=== PATIENT | female | born 1985 | race Caucasian/White ===

== ENCOUNTER 2016-12-08 06:49 | Emergency (ER) | payer OTHER ==
[~2016-12-08] VITALS: Ht 157.5 cm; Wt 66.0 kg
[~2016-12-08 06:49] MED LIST: AVIATAB PO; VITA100017 PO; VITA500S3 SL
[2016-12-08 06:53] VITALS: BP 113/68; PULSE 109; RESP 16; TEMP 98.6; O2SAT 97
[2016-12-08] MEDS ORDERED: ACETAMINOPHEN 500 MG CPLT PO ONE (07:15)
[2016-12-08] MEDS ORDERED: ANAF75CA PO (07:17)
--- NOTE | 2016-12-08 07:18 | PD ---
HPI Chief Complaint: Musculoskeletal Complaint Time Seen by Provider: 07:04 Travel History International Travel<30 days: No Contact w/Intl Traveler<30days: No Traveled to known affect area: No History of Present Illness HPI This is a 31-year-old female who presents to the emergency department with ankle pain that started this morning when she woke up, constant, moderate severity, associated with swelling in her ankle. She's been unable to weight- bear. She says that several days ago they went to [employer] [place] and they walked 10-12 miles. She has had no other recent injuries. PFSH Past Medical History Arthritis: No Asthma: No Autoimmune Disease: No Blood Disorders: No Anxiety: Yes Depression: Yes Heart Rhythm Problems: No Cancer: No Cardiovascular Problems: No High Cholesterol: No Chemotherapy: No Chest Pain: No Congestive Heart Failure: No COPD: No Cerebrovascular Accident: No Diabetes: No Diminished Hearing: No Endocrine: No Gastrointestinal Disorders: Yes (CELIAC DISEASE) GERD: No Glaucoma: No Genitourinary: No Headaches: No Hepatitis: No Hiatal Hernia: No Hypertension: No Immune Disorder: No Kidney Stones: No Medical other: Yes (CELIAC DISEASE, SCOLOSIS) Musculoskeletal: Yes Neurologic: No Psychiatric: Yes Reproductive: No Respiratory: No Migraines: No Myocardial Infarction: No Radiation Therapy: No Renal Failure: No Seizures: No Sickle Cell Disease: No Sleep Apnea: No Thyroid Disease: No Ulcer: No Tetanus Vaccination: > 5 Years Influenza Vaccination: No ?: Not Past Surgical History Abdominal Surgery: No AICD: No Appendectomy: No Arteriovenous Shunt: No Cardiac Surgery: No Cholecystectomy: No Ear Surgery: No Endocrine Surgery: No Eye Surgery: No Genitourinary Surgery: No Gynecologic Surgery: No Insulin Pump: No Joint Replacement: No Neurologic Surgery: No (BACK SURGERY FOR SCOLIOSIS) Oral Surgery: Yes (ALL 4 WISDOM TEETH) Pacemaker: No Thoracic Surgery: No Other Surgery: Yes Social History Alcohol Use: Yes (~1 X WEEK) Tobacco Use: No Substance Use: No Allergies-Medications (Allergen,Severity, Reaction): Coded Allergies: gluten (Unverified Allergy, Severe, 12/08/16) Reported Meds & Prescriptions Reported Meds & Active Scripts Active Reported Anafranil (Clomipramine HCl) 75 Mg Cap 150 Mg PO DAILY Review of Systems General / Constitutional: No: Fever, Chills Respiratory: No: Shortness of Breath Physical Exam Narrative GENERAL: Well-appearing, no acute distress, nontoxic SKIN: Warm and dry. HEAD: Atraumatic. Normocephalic. ENT: No nasal bleeding or discharge. Moist mucous membranes Vascular: 2+ right DP pulse with normal capillary refill. MUSCULOSKELETAL: Swelling involving the right lateral malleolus and tender to palpation along the proximal aspect of the fifth metatarsal on the right foot NEUROLOGICAL: Awake and alert. No obvious cranial nerve deficits. Motor grossly within normal limits. Normal speech. PSYCHIATRIC: Appropriate mood and affect; insight and judgment normal. Data Data Last Documented VS Vital Signs Date Time Temp Pulse Resp B/P (MAP) Pulse Ox O2 Delivery O2 Flow Rate FiO2 12/08/16 06:53 98.6 109 16 113/68 (83) 97 Orders Orders Ankle, Complete ([id number]) (12/08/16 ) Foot, Complete (Oej0ped) (12/08/16 ) Acetaminophen (Tylenol) (12/08/16 07:15) MDM Medical Decision Making Medical Screen Exam Complete: Yes Emergency Medical Condition: Yes Interpretation(s) X-ray ankle and foot are reassuring Differential Diagnosis Contusion, sprain, stress fracture Narrative Course This is a 31-year-old female who presents to the emergency department with foot and ankle pain after walking 10-12 miles. She has an effusion involving the right ankle. She has a normal neurovascular exam. X-rays were reassuring with no evidence of fracture. Patient was advised to rest, ice, Kalyan wrap and elevate the foot and to follow-up with a svp marketing [employer] at [employer] [facility] if she's not improved in 7- 10 days. Diagnosis Primary Impression: Ankle sprain Qualified Codes: S93.401A - Sprain of unspecified ligament of right ankle, initial encounter Referrals: Zackary Pham DPM Patient Instructions: General Instructions Additional Instructions: If you develop severe pain in the foot or ankle, numbness, weakness, or coolness of your foot return to the emergency department immediately. - Use crutches as needed and rest your ankle until your pain improves. - Apply ice to your ankle for 20 minutes every 3 hours for the first 2 days. - Use an kalyan wrap to minimize swelling. - Keep your ankle elevated when you are resting. - Use ibuprofen as needed for pain. - Gradually start exercises with your ankle, moving it upward, downward and in small circles. Perform 20 clockwise and 20 counterclockwise circles twice daily. Med/Other Pt SpecificInfo: No Change to Meds Disposition: 01 DISCHARGE HOME Condition: Stable Shasha Almanza MD Dec 08, 2016 07:17
--- NOTE | 2016-12-08 07:58 | RADRPT ---
EXAM DATE/TIME: 12/08/2016 07:28 [facility] COMPARISON: No previous studies available for comparison. INDICATIONS : Twisted right ankle. Pain and limited motion. MEDICAL HISTORY : None. SURGICAL HISTORY : None. ENCOUNTER: Initial ACUITY: 2 days PAIN SCORE: 7/10 LOCATION: Right lateral FINDINGS: Three view exam was performed of the right ankle. The bony structures are in normal alignment. No e vidence of fracture, dislocation, or soft tissue swelling. The ankle mortise is intact. No radiopaq ue foreign bodies are seen. Bony mineralization is normal. CONCLUSION: Normal examination for a patient of this age. Jarocho Fleming MD on December 08, 2016 at 7:56 Board Certified Radiologist. This report was verified electronically.
--- NOTE | 2016-12-08 07:59 | RADRPT ---
EXAM DATE/TIME: 12/08/2016 07:28 [facility] COMPARISON: No previous studies available for comparison. INDICATIONS : Right foot injury. Pain and swelling. MEDICAL HISTORY : None. SURGICAL HISTORY : None. ENCOUNTER: Initial ACUITY: 2 days PAIN SCORE: 7/10 LOCATION: Right lateral FINDINGS: Three view examination of the right foot demonstrates no soft tissue swelling, dislocation, or fractu re. The tarsal bones appear intact. The interphalangeal and metatarsophalangeal joints are intact. The calcaneus is intact. Bony mineralization is normal. CONCLUSION: Normal examination for a patient of this age. Jarocho Fleming MD on December 08, 2016 at 7:57 Board Certified Radiologist. This report was verified electronically.
== END 2016-12-08 08:26 | disposition home or self-care (01) ==
LOC: PHED 06:49
DX: S93.401A Sprain of unspecified ligament of right ankle, initial encounter (principal); X50.3XXA Overexertion from repetitive movements, initial encounter; Y93.01 Activity, walking, marching and hiking; Y92.831 Amusement park as the place of occurrence of the external cause
CPT/HCPCS: 73610; 73630; 99283; E0113

== ENCOUNTER 2017-09-12 18:34 | Inpatient (IN) ==
[2017-09-12] MEDS ORDERED: Sod Chloride 0.9% Inj 1,000 ML IV.CONT PRN ×2 (19:29→19:37)
[2017-09-12] MEDS ORDERED: Sodium Chlor 0.9% Inj 500 ML IV.SIG PRN (19:29)
[2017-09-12] MEDS ORDERED: fentaNYL Citrate Inj 100 MCG/2 ML Ampul IV.PUSH PRN ×2 (19:37→21:06)
[2017-09-12] MEDS ORDERED: Naloxone Inj 0.4 MG/ML Vial IV.PUSH PRN (19:37)
[2017-09-12] MEDS ORDERED: Dextrose 50% in Water 50 ML Vial IV.PUSH PRN (19:39)
[2017-09-12] MEDS ORDERED: Citric Acid/Sodium Citrate Liq 30 ML UDC PO SCH (19:45)
--- NOTE | 2017-09-12 19:48 | P.OBGPN ---
H&P dicated. Brief pt summary: Vital signs not yet collected. 32 yo G1 a 39w0d by L/5 (BERTHA 09/19/17) 1. IUP: Cat 1 tracing, continue - male fetus, maybe for circ. - EFW (09/06) = 3216g (64%) AC (77%), Cephalic. - GBS neg 2. IOL: secondary to #3, BS unfavorable, PV miso 25mcg q4H. Allow to eat if Cat 1 after miso. 3. GDM A2: Continue home metformin 500mg qHS, BS AM fasting and 1hr PP, in latent labor q2hr, then q1hr active, goal 70-110. 4. Bilateral renal pyelectasis: Found at [facility], resolved on most recent ultrasounds. - Normal anatomy ultrasound and neg quad screen. 5. OCD / GENE / MDD: continue climipermine, will monitory for sn/sx of worsening . 6. Scoliosis: s/p hearn rods when younger, provided reassurance that likely not to interfere with epidural
[2017-09-12] MEDS ORDERED: Oxytocin 30 Units/500ml Premix 30 UNITS/500 ML BAG IV.SIG ONE (21:00)
[2017-09-12 21:18] LABS: Baso % (Auto) 0.3 % (0.0-2.0); Eos % (Auto) 0.4 % (0.0-4.0); Hematocrit 34.3 % (35.0-46.0); Lymph # (Auto) 1.5 th/mm3 (1.0-4.8); Mean Corpuscular HGB Conc 32.2 % (32.0-36.0); Mean Corpuscular Volume 77.5 fL (80.0-100.0); Mean Platelet Volume 10.5 fL (7.0-11.0); Mono # (Auto) 0.6 th/mm3 (0.0-0.9); Mono % (Auto) 6.7 % (0.0-8.0); Neut # (Auto) 6.2 th/mm3 (1.8-7.7); Neut % (Auto) 74.6 % (16.0-70.0); Platelet Count 148 th/mm3 (150-450); Red Blood Count 4.42 mil/mm3 (4.00-5.30); White Blood Count 8.4 th/mm3 (4.0-11.0)
[2017-09-12 21:22] LABS: Bacteria,Urine Few /hpf; Bilirubin,Urine Negative (Negative); Clarity,Urine Clear (Clear); Color,Urine Straw (Yellw/Straw); Glucose,Urine (UA) Negative (Negative); Leukocyte Esterase,Urine Trace (Negative); Mucus,Urine Few /lpf (Occasional); Nitrite,Urine Negative (Negative); Specific Gravity,Urine 1.003 (1.002-1.035); Squamous Epithelial Cell,Urine 1 /hpf (0-5)
[2017-09-12 21:23] LABS: Amphetamine Urine With Conf Neg (Neg); Benzodiazepine Urine With Conf Neg (Neg)
[2017-09-13] MEDS: Insulin NovoLIN Regular Correctional Sugar Inj SQ SCH ×2 (02:38→06:28)
[2017-09-13] MEDS: fentaNYL Citrate Inj 100 MCG/2 ML Ampul IV.PUSH PRN ×2 (03:53→07:21)
--- NOTE | 2017-09-13 07:31 | P.OBGPN ---
S: Doing well, having regular painful contractions, no vaginal bleeding or loss of fluid. Desires epidural. O: Cervix: 3-4/70/-2 heart tones: 120s- 130s moderate variability accelerations present no decelerations Tocometry: Contractions irregularly every 2-4 minutes A/P: 32 yo G1 a 39w1d by L/5 (BERTHA 09/19/17) 1. IUP: Cat 1 tracing - male fetus, maybe for circ. - EFW (09/06) = 3216g (64%) AC (77%), Cephalic. - GBS neg 2. IOL: secondary to #3, BS favorable s/p PV miso x2. Will AROM after epidural placed. Anticipate vaginal delivery 3. GDM A2: Continue home metformin 500mg qHS, BS have been normal, check q2hr now and then q1hr in active phase, if normal may consider d/c finger sticks. MDSS for coverage. 4. Bilateral renal pyelectasis: Found at AU, resolved on most recent ultrasounds. - Normal anatomy ultrasound and neg quad screen. 5. OCD / GENE / MDD: continue home climipermine, will monitory for sn/sx of worsening . 6. Scoliosis: s/p hearn rods when younger, anesthesia to assess for placement now
[2017-09-13] MEDS ORDERED: Oxytocin 30 Units/500ml Premix 30 UNITS/500 ML BAG IV.SIG PRN (07:33)
[2017-09-13] MEDS ORDERED: fentaNYL 2MCG-Bupiv 0.125% Epi 150 ML EPIDURAL ONE (08:09)
[2017-09-13] MEDS ORDERED: CLOMIPRAMINE 50 MG PO SCH (09:00)
[2017-09-13] MEDS ORDERED: fentaNYL 2MCG-Bupiv 0.125% Epi 150 ML EPIDURAL PRN (09:23)
[2017-09-13] MEDS ORDERED: fentaNYL Citrate Inj 100 MCG/2 ML Ampul EPIDURAL ONE (09:35)
--- NOTE | 2017-09-13 10:55 | P.OBLABOR ---
Subjective Interval history: pt comfortable with epidural Objective Vital Signs: Vital Signs - 8 hr 09/13/17 03:50 09/13/17 04:58 09/13/17 07:15 Temperature 97.9 F Pulse Rate 66 Respiratory Rate 18 18 7 L Blood Pressure 130/77 09/13/17 07:24 09/13/17 08:30 09/13/17 08:45 Temperature 99.0 F Pulse Rate 71 73 72 Respiratory Rate 18 Blood Pressure 135/88 140/85 141/90 H 09/13/17 08:50 09/13/17 08:51 09/13/17 08:53 Temperature Pulse Rate 61 68 Respiratory Rate 19 Blood Pressure 129/71 09/13/17 08:55 09/13/17 09:05 09/13/17 09:10 Temperature Pulse Rate 62 66 59 L Respiratory Rate Blood Pressure 133/71 131/75 120/67 09/13/17 09:13 09/13/17 09:25 09/13/17 09:30 Temperature Pulse Rate 67 Respiratory Rate 18 18 Blood Pressure 128/80 09/13/17 09:36 09/13/17 09:39 09/13/17 09:40 Temperature Pulse Rate 76 64 Respiratory Rate 19 Blood Pressure 127/79 121/74 09/13/17 09:45 09/13/17 09:50 09/13/17 09:55 Temperature Pulse Rate 63 75 75 Respiratory Rate Blood Pressure 123/58 L 127/77 09/13/17 10:00 09/13/17 10:10 09/13/17 10:15 Temperature Pulse Rate 82 73 65 Respiratory Rate 17 Blood Pressure 118/80 118/70 09/13/17 10:30 Temperature Pulse Rate 69 Respiratory Rate 18 Blood Pressure 123/74 Objective: Pelvic Exam: Cervix: [-] Dilatation: [-] Effacement: [-] Station: [-] Presentation: [-] Membranes: [intact or ruptured] Uterine Contractions: [-] FHT's: Category: [-] Baseline: [-] Reactive: [-] Variability: [-] Decels: [-] Artificial Rupture of Membrane: Yes Artificial ROM Date: 09/13/17 Artificial ROM Time: 10:25 Assessment and Plan - Diagnosis (1) Code(s): Z34.90 - Encounter for supervision of normal , unspecified, unspecified trimester Status: Acute - Plan arom attempted, minimal fluid returned (1) Qualifiers: Weeks of gestation: 39 weeks Qualified Code(s): Z3A.39 - 39 weeks gestation of
--- NOTE | 2017-09-13 13:24 | MH ---
cc: Chon Diaz MD DATE OF ADMISSION: 09/12/2017 CHIEF COMPLAINT: Scheduled induction of labor. HISTORY OF PRESENT ILLNESS: The patient is a 32-year-old G1, who will be at 39 weeks and 0 days by her sure LMP, consistent with a 5-week 6-day ultrasound with estimated due date of 09/19/2017, here for induction of labor secondary to gestational diabetes A2. Any addendum or additions to her HPI, vitals or assessment and plan will be added as an addendum on a separate note. The has been complicated by gestational diabetes A2, depression, OCD, anxiety, celiac disease and early finding of pyelectasis which resolved. PAST MEDICAL HISTORY: 1. Celiac disease. 2. Anxiety. 3. Depression. 4. Obsessive compulsive disorder. 5. History of scoliosis, status post rods MEDICATIONS: 1. Clomipramine 50 mg daily. 2. vitamins. 3. Metformin 500 mg at bedtime. 4. MiraLax. ALLERGIES: NKDA. PAST SURGICAL HISTORY: 1. Arm and shoulder surgeries in 2010. 2. Scoliosis repair, states she has rods in her back in 2000. OBSTETRIC HISTORY: G1. SENIOR INFORMATION SYSTEMS ARCHITECT HISTORY: LMP 12/13/2016. History of STDs: Denies. History of abnormal Pap: Yes, but most recent 02/13/2017 was normal. SOCIAL HISTORY: No tobacco, alcohol or drug use. FAMILY HISTORY No pertinent positive family history. PHYSICAL EXAMINATION: VITAL SIGNS: Most recent on 09/06/2017, blood pressure 104/70, weight 182 pounds. GENERAL: Alert and oriented x3, resting comfortably in bed, in no acute distress. LUNGS: Clear to auscultation bilaterally. CARDIAC: Regular rate and rhythm. No murmurs, rubs or gallops. ABDOMEN: Soft, gravid, nontender. : Deferred. EXTREMITIES: No clubbing, cyanosis or edema. LABORATORY DATA: Blood type B positive, antibody negative. Baseline hemoglobin on 12/31/2017 12.7. Varicella immune, rubella immune, VDRL nonreactive. Urine culture negative. Hepatitis B surface antigen negative, HIV negative. TSH 2.02. Sickle cell screen negative. Hepatitis B antibody negative. Drug screen negative. Gonorrhea and chlamydia not performed. Quad screen negative on 04/15/2017. 1-hour Glucola of 160 , 3 hours, 77, 186, 197, 133. GBS negative. ASSESSMENT AND PLAN: This patient is a 32-year-old, G1, at 39 weeks and 0 days by LMP, consistent with 5-week ultrasound with estimated due date of 09/19/2017, here for induction of labor secondary to gestational diabetes A2. 1. Intrauterine . Will be placed on continuous monitoring at time of presentation. - cephalic by ultrasound on 09/06/2017. GBS negative. - estimated weight on 09/06/2017, 3216 grams, 64th percentile, abdominal circumference 77th percentile. Placenta posterior. DARYL 16 cm. Male fetus. Desires circumcision. 2. Induction of labor secondary to #3. Leger score will be assessed and calculated at the time of presentation, likely for cervical ripening. I have discussed the risks and benefits of induction of labor and aware that it will likely be prolonged given her primigravida status. Will desire epidural. She is aware that it will be up to the anesthesiologist to feel that this can be achieved secondary to her history of Oneil rods, but provide her reassurance that it is likely to be successful. 3. Gestational diabetes, A2. Has been well controlled on metformin 500 mg at bedtime. Blood sugars will be checked fasting and every 1 hour postprandial on early stages of labor and every 2 hours in late labor, every 1 hour in active phase. Goal is 70-110. May need sliding scale or drip for coverage. We will assess as labor progresses. 4. OCD/anxiety/depression. Continue her clomipramine followed by psychiatry as an outpatient. We will continue to monitor closely for any worsening or development of depression. 5. History of pyelectasis found during her anatomy ultrasound have resolved on repetitive ultrasounds during testing. Negative quad screen and normal anatomy. 7. 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 MD GLEN EddyT/KIERSTEN , 01:35 PM , 02:24 PM MÓNICA
[2017-09-13] MEDS ORDERED: Measles/Mumps/Rubella Vaccine Inj 0.5 ML Vial SQ ONE (16:00)
[2017-09-13] MEDS ORDERED: Varicella Vaccine Live 1350 UNITS/0.5 ML Vial SQ ONE (16:00)
[2017-09-13] MEDS ORDERED: Rho Immune Globulin Inj 1,500 UNIT/1.3 ML Vial IM ONE (16:00)
[2017-09-13] MEDS ORDERED: Diphtheria/Tetanus/Pertussis Vaccine Inj 0.5 ML Syringe IM ONE (16:00)
[2017-09-13] MEDS ORDERED: Lidocaine PF 1% Inj 30 ML Vial ONE (19:20)
[2017-09-13] MEDS ORDERED: Methylergonovine Inj 0.2 MG/ML Ampul ONE (21:41)
[2017-09-13] MEDS ORDERED: Methylergonovine Inj 0.2 MG/ML Ampul IM ONE (22:21)
[2017-09-13] MEDS ORDERED: Benzocaine 20% Top Spray 60 ML Can TOPICAL PRN (22:21)
[2017-09-13] MEDS ORDERED: Acetaminophen 325 MG Tablet PO PRN (22:21)
[2017-09-13] MEDS ORDERED: Zolpidem Tartrate 5 MG Tablet PO PRN (22:21)
[2017-09-13] MEDS ORDERED: Bisacodyl 10 MG Supp RECTAL PRN (22:21)
[2017-09-13] MEDS ORDERED: Naloxone Inj 0.4 MG/ML Vial IV.PUSH PRN (22:21)
[2017-09-13] MEDS ORDERED: Witch Hazel 50%/Glyderin 12.5% 40 Pad Jar RECTAL PRN (22:21)
[2017-09-13] MEDS ORDERED: Oxytocin 30 Units/500ml Premix 30 UNITS/500 ML BAG IV.CONT SCH (22:30)
--- NOTE | 2017-09-13 22:31 | P.OP ---
Date of procedure: 09/13/17 Surgeon: Chon Diaz MD Operation and Findings: Preoperative diagnosis: 1. Intrauterine at 39 weeks and 1 day 2. Gestational diabetes A2 Postop diagnosis 1. Same as above status post delivery Procedure 1. Vacuum-assisted vaginal delivery Surgeon Dr. Chon Diaz Algorithm Design Engineer: Labor and delivery nursing staff Findings: 1. Viable male at 0929 Apgars 8 and 9. weight 3290 g 2. Intact placenta 3 vessel cord at 0936 3. Uterine atony resolved with bimanual massage, 1 dose of IM methargen and bolus Pitocin 4. First-degree laceration repaired with running 3-0 Vicryl. Bilateral labia minora lacerations right greater than left 5. Umbilical arterial and venous cord gases pending Anesthesia: Epidural Specimen: Placenta to disposal Estimated blood loss: 500 cc Fluid replacement: Lactated Ringer's and Pitocin Urine output: Clear urine, no amount recorded DVT prophylaxis: SCDs Antibiotics: None required Medications: 0.2 mg IM methargen 1 after delivery Counts: In corrected in the procedure, however nothing was placed vaginally and a vaginal sweep was done and no surgical sponges were found. Time out done: yes Disposition: Stable to Indications: 32-year-old G1 now P1 001 who presented for induction of labor secondary to gestational diabetes A2, she was given misoprostol 2, artificially ruptured, received her epidural, progressed with Pitocin for augmentation to complete. Description of procedure: Consent: The risks (which are relatively low and generally are viewed as acceptable for the above indications by ACOG), benefits, alternatives, expected outcomes, and risks of declining treatment were explained and discussed with the patient risks including but not limited to scalp laceration, retinal hemorrhages, brachial plexus injury, cephalohematoma formation, and subgaleal or intracranial hemorrhage, which typically are transient but can results in permanent neurological sequela. Maternal risk included but not limited to perineal laceration and failure of vacuum and potentially needed a . Description of procedure: The fetus was at +2 station and in SHYLA position, the bladder was recently drained, and her anesthesia was adequate, the vacuum was placed 2 cm anterior to the posterior fontanelle over the sagital suture. Suction was applied to green and with coordination of maternal pushing efforts downward traction was applied with the vacuum until the head was , suction and the vacuum was removed. The head upon was allowed to restitute naturally after delivery with a supported perineum, a loose nuchal cord was reduced, with gentle downward guidance anterior shoulder was delivered followed by gentle upper guidance for the posterior shoulder, the torso and lower extremities delivered with ease with continued perineal support. The had spontaneous cry and was placed on mom's abdomen for skin to skin contact, we allow delayed cord clamping. After the cord was clamped and cut, cord blood was obtained. Pitocin was bolused and with fundal massage the placenta was delivered, there was some brisk bleeding and uterine atony, which resolved with bimanual massage, bolus Pitocin and 1 dose of IM methargen. The perineum vagina and cervix were inspected and the first degree was repaired with 3-0 Vicryl and the bilateral labial's were repaired with 3-0 Vicryl. The patient tolerated the procedure well and was left in the birthing suite with her .
--- NOTE | 2017-09-13 22:37 | P.DS ---
Date of admission: 09/12/17 18:34 Primary care physician: NOT REQUIRED Brief History from admission: 32-year-old 001 who presented at 39 weeks and 0 days for induction of labor secondary to her gestational diabetes, she received misoprostol, was augmented further and delivered via vacuum-assisted delivery, please see operative report for further details. She was meeting all of her milestones and day #2 and was discharged home. DS: Medications - Discharge Medications Prescriptions: ibuprofen [Motrin IB] 600 mg PO TID-QID PRN 30 Days tab PRN Reason: Pain DS: Summary Hospital Course: See brief history - Time Spent with Patient Total time spent providing and/or coordinating discharge services: Exam Vital signs: Vital Signs 09/13/17 00:11 09/13/17 03:50 09/13/17 04:58 Temperature 98.3 F 97.9 F Pulse Rate 65 66 Respiratory Rate 17 18 18 Blood Pressure 117/72 130/77 09/13/17 07:15 09/13/17 07:24 09/13/17 08:30 Temperature 99.0 F Pulse Rate 71 73 Respiratory Rate 7 L Blood Pressure 135/88 140/85 09/13/17 08:45 09/13/17 08:50 09/13/17 08:51 Temperature Pulse Rate 72 61 68 Respiratory Rate 18 Blood Pressure 141/90 H 129/71 09/13/17 08:53 09/13/17 08:55 09/13/17 09:05 Temperature Pulse Rate 62 66 Respiratory Rate 19 Blood Pressure 133/71 131/75 09/13/17 09:10 09/13/17 09:13 09/13/17 09:25 Temperature Pulse Rate 59 L 67 Respiratory Rate 18 Blood Pressure 120/67 128/80 09/13/17 09:30 09/13/17 09:36 09/13/17 09:39 Temperature Pulse Rate 76 Respiratory Rate 18 19 Blood Pressure 127/79 09/13/17 09:40 09/13/17 09:45 09/13/17 09:50 Temperature Pulse Rate 64 63 75 Respiratory Rate Blood Pressure 121/74 123/58 L 127/77 09/13/17 09:55 09/13/17 10:00 09/13/17 10:10 Temperature Pulse Rate 75 82 73 Respiratory Rate 17 Blood Pressure 118/80 09/13/17 10:15 09/13/17 10:30 09/13/17 10:40 Temperature Pulse Rate 65 69 69 Respiratory Rate 18 Blood Pressure 118/70 123/74 09/13/17 10:45 09/13/17 11:05 09/13/17 11:07 Temperature 97.9 F Pulse Rate 67 62 Respiratory Rate 17 18 Blood Pressure 130/85 113/69 09/13/17 11:10 09/13/17 11:15 09/13/17 11:40 Temperature Pulse Rate 65 64 64 Respiratory Rate Blood Pressure 115/69 111/67 09/13/17 11:55 09/13/17 12:25 09/13/17 12:40 Temperature Pulse Rate 67 66 65 Respiratory Rate Blood Pressure 114/78 132/85 125/81 09/13/17 13:35 09/13/17 13:40 09/13/17 13:45 Temperature 97.6 F Pulse Rate 63 73 84 Respiratory Rate 18 Blood Pressure 120/71 130/87 123/73 09/13/17 13:58 09/13/17 14:00 09/13/17 14:25 Temperature Pulse Rate 65 67 Respiratory Rate 17 Blood Pressure 119/86 09/13/17 14:30 09/13/17 14:40 09/13/17 14:46 Temperature Pulse Rate 74 78 69 Respiratory Rate 17 Blood Pressure 154/88 H 131/84 09/13/17 15:00 09/13/17 15:10 09/13/17 15:15 Temperature Pulse Rate 67 71 81 Respiratory Rate 18 Blood Pressure 131/83 09/13/17 15:25 09/13/17 16:00 09/13/17 16:15 Temperature 97.8 F Pulse Rate 79 71 65 Respiratory Rate 17 Blood Pressure 127/68 122/68 09/13/17 16:30 09/13/17 16:45 09/13/17 17:30 Temperature Pulse Rate 69 68 84 Respiratory Rate 8 L Blood Pressure 108/64 123/81 120/76 09/13/17 17:45 09/13/17 18:00 09/13/17 18:15 Temperature Pulse Rate 62 72 77 Respiratory Rate 16 Blood Pressure 126/79 135/83 121/70 09/13/17 18:45 09/13/17 19:00 09/13/17 19:14 Temperature 98.1 F Pulse Rate 82 80 Respiratory Rate Blood Pressure 123/70 124/67 09/13/17 19:15 09/13/17 19:30 09/13/17 19:56 Temperature Pulse Rate 71 Respiratory Rate 16 16 16 Blood Pressure 115/70 09/13/17 21:48 Temperature Pulse Rate 75 Respiratory Rate Blood Pressure 119/44 L Intake & Output 09/13/17 09/13/17 09/14/17 06:59 18:59 06:59 Intake Total 0 / 0 1000 / 1000 Balance 0 / 0 1000 / 1000 Weight 82.554 kg Intake: IV 0 / 0 1000 / 1000 LR 1000 mL Inj 1,000 ML @ 125 0 / 0 1000 / 1000 mls/hr IV.CONT .Q8H [facility] Rx#: [id number] Results Procedures completed during hospitalization: Vacuum-assisted vaginal delivery Labs on day of discharge: Labs from last 24 hours 09/13/17 09/13/17 09/13/17 14:36 11:20 08:17 POC Glucose 65 L 82 85 09/13/17 06:13 POC Glucose 72 Discharge Plan - Discharge Disposition Patient Disposition: 01 Discharge Home - Discharge Condition Condition: Good - Discharge Order Discharge Orders: Discharge Order (Routine); Ordered 09/15/17 Ordered By: Chon Diaz - Discharge Details Anticipated Discharge Date: 09/15/17 - Physicians Team Primary Care Provider: NOT REQUIRED, Attending Provider: Chon Diaz - Rxs /Orders / Referrals /Forms Prescriptions: New ibuprofen [Motrin IB] 200 mg Tablet 600 mg PO TID-QID PRN (Reason: Pain) 30 Days RF: 1 Continue clomipramine 50 mg Capsule 50 mg PO DAILY vit-iron fum-folic ac [ Vitamin] 27 mg iron- 0.8 mg Tablet 1 tab PO DAILY Discontinued metformin 500 mg Tablet 1 tab DAILY Referrals: Chon Diaz MD [Physician] - See Instructions NOT REQUIRED, [Primary Care Provider] - See Instructions - Discharge Instructions Additional Instructions: Call to make visit for 2 weeks. - Post Discharge Care Plan Care Plan Goals: Your Health Problems: Goals to Promote Your Health: * To prevent worsening of your condition * To maintain your health at the optimal level Directions to Meet Your Goals: * Take your medications as prescribed * Follow your dietary instruction * Follow activity as directed * Keep your appointments as scheduled * Take your immunizations and boosters as scheduled * If your symptoms worsen call your PCP * If no PCP go to Urgent Care or Emergency Room Smoking is dangerous to your health. Avoid second hand smoke. You may reach the 24-hour crisis hotline for domestic abuse at .
[2017-09-13] MEDS: Ibuprofen 400 MG Tablet PO PRN (23:06)
[2017-09-13 23:39] LABS: Cord Arterial Blood HCO3 20.5
[2017-09-14] MEDS: Ibuprofen 400 MG Tablet PO PRN ×2 (06:40→17:11)
--- NOTE | 2017-09-14 07:37 | P.PNOB ---
Subjective Post day: 1 Interval history: Doing well, pain controlled, voiding difficulty, vaginal bleeding equal to menses, no large clots, ambulating without difficulty. Objective Vital Signs/I&O: Vital Signs 09/13/17 08:30 09/13/17 08:45 09/13/17 08:50 Temperature Pulse Rate 73 72 61 Respiratory Rate 18 Blood Pressure 140/85 141/90 H 09/13/17 08:51 09/13/17 08:53 09/13/17 08:55 Temperature Pulse Rate 68 62 Respiratory Rate 19 Blood Pressure 129/71 133/71 09/13/17 09:05 09/13/17 09:10 09/13/17 09:13 Temperature Pulse Rate 66 59 L Respiratory Rate 18 Blood Pressure 131/75 120/67 09/13/17 09:25 09/13/17 09:30 09/13/17 09:36 Temperature Pulse Rate 67 76 Respiratory Rate 18 Blood Pressure 128/80 127/79 09/13/17 09:39 09/13/17 09:40 09/13/17 09:45 Temperature Pulse Rate 64 63 Respiratory Rate 19 Blood Pressure 121/74 123/58 L 09/13/17 09:50 09/13/17 09:55 09/13/17 10:00 Temperature Pulse Rate 75 75 82 Respiratory Rate 17 Blood Pressure 127/77 118/80 09/13/17 10:10 09/13/17 10:15 09/13/17 10:30 Temperature Pulse Rate 73 65 69 Respiratory Rate 18 Blood Pressure 118/70 123/74 09/13/17 10:40 09/13/17 10:45 09/13/17 11:05 Temperature Pulse Rate 69 67 62 Respiratory Rate 17 Blood Pressure 130/85 113/69 09/13/17 11:07 09/13/17 11:10 09/13/17 11:15 Temperature 97.9 F Pulse Rate 65 64 Respiratory Rate 18 Blood Pressure 115/69 09/13/17 11:40 09/13/17 11:55 09/13/17 12:25 Temperature Pulse Rate 64 67 66 Respiratory Rate Blood Pressure 111/67 114/78 132/85 09/13/17 12:40 09/13/17 13:35 09/13/17 13:40 Temperature Pulse Rate 65 63 73 Respiratory Rate Blood Pressure 125/81 120/71 130/87 09/13/17 13:45 09/13/17 13:58 09/13/17 14:00 Temperature 97.6 F Pulse Rate 84 65 Respiratory Rate 18 17 Blood Pressure 123/73 119/86 09/13/17 14:25 09/13/17 14:30 09/13/17 14:40 Temperature Pulse Rate 67 74 78 Respiratory Rate 17 Blood Pressure 154/88 H 09/13/17 14:46 09/13/17 15:00 09/13/17 15:10 Temperature Pulse Rate 69 67 71 Respiratory Rate 18 Blood Pressure 131/84 131/83 09/13/17 15:15 09/13/17 15:25 09/13/17 16:00 Temperature 97.8 F Pulse Rate 81 79 71 Respiratory Rate 17 Blood Pressure 127/68 09/13/17 16:15 09/13/17 16:30 09/13/17 16:45 Temperature Pulse Rate 65 69 68 Respiratory Rate 8 L Blood Pressure 122/68 108/64 123/81 09/13/17 17:30 09/13/17 17:45 09/13/17 18:00 Temperature Pulse Rate 84 62 72 Respiratory Rate Blood Pressure 120/76 126/79 135/83 09/13/17 18:15 09/13/17 18:45 09/13/17 19:00 Temperature Pulse Rate 77 82 80 Respiratory Rate 16 Blood Pressure 121/70 123/70 124/67 09/13/17 19:14 09/13/17 19:15 09/13/17 19:30 Temperature 98.1 F Pulse Rate 71 Respiratory Rate 16 16 Blood Pressure 115/70 09/13/17 19:56 09/13/17 21:48 09/13/17 21:50 Temperature 98.0 F Pulse Rate 75 Respiratory Rate 16 18 Blood Pressure 119/44 L 09/13/17 22:05 09/13/17 22:20 09/13/17 22:30 Temperature Pulse Rate 59 L Respiratory Rate 18 18 18 Blood Pressure 139/73 09/13/17 22:47 09/13/17 22:50 09/13/17 23:35 Temperature 99.2 F Pulse Rate 72 51 L Respiratory Rate 16 20 Blood Pressure 137/85 139/78 Intake & Output 09/13/17 09/14/17 09/14/17 18:59 06:59 18:59 Intake Total 1000 / 1000 Balance 1000 / 1000 Intake: IV 1000 / 1000 LR 1000 mL Inj 1,000 ML @ 125 1000 / 1000 mls/hr IV.CONT .Q8H BEENA Rx#: [id number] Result Diagrams: 09/12/17 20:21 Objective Remarks: GENERAL: Well-nourished, well-developed patient. CARDIOVASCULAR: Regular rate and rhythm without murmurs, gallops, or rubs. RESPIRATORY: Breath sounds equal bilaterally. No accessory muscle use. ABDOMEN/GI: Abdomen soft, non-tender. Fundus: Firm, non-tender at umbilicus. GENITOURINARY: Light to moderate bleeding. EXTREMITIES: No cyanosis or edema, non-tender, without signs of DVT. Medications and IVs: Active Medications Acetaminophen (Tylenol) 650 mg PO Q4H PRN PRN Reason: PAIN SCALE 1 TO 2 Al Hydroxide/Mg Hydroxide (Milk Of Magnesia Liq) 30 ml PO Q12H PRN PRN Reason: Mild Constipation Benzocaine (Americaine 20% Top [place]) 1 spray TOPICAL Q4H PRN PRN Reason: For Perineum Discomfort Last Admin: 09/14/17 06:41 Dose: 1 spray Bisacodyl (Dulcolax Supp) 10 mg RECTAL DAILY PRN PRN Reason: SEVERE CONSITIPATION Ferrous Sulfate (Ferosul) 325 mg PO DAILY [facility]EE[facility] Lactulose (Lactulose Liq) 30 ml PO DAILY PRN PRN Reason: SEVERE CONSITIPATION Naloxone HCl (Narcan Inj) 0.1 mg IV.PUSH Q2M PRN PRN Reason: for opiate reversal Ondansetron HCl (Zofran Odt) 4 mg PO Q6H PRN PRN Reason: NAUSEA OR VOMITING Oxycodone/Acetaminophen (Percocet 5/325 Mg) 1 tab PO Q4H PRN PRN Reason: PAIN SCALE 3 TO 5 Oxycodone/Acetaminophen (Percocet 5/325 Mg) 2 tab PO Q4H PRN PRN Reason: PAIN SCALE 6 TO 10 Last Admin: 09/13/17 23:07 Dose: 2 tab Senna/Docusate Sodium ([place]-Colace) 1 tab PO BID [facility] Sennosides (Senokot) 17.2 mg PO Q12H PRN PRN Reason: Moderate Constipation Sodium Chloride (Ns Flush) 2 ml IV.FLUSH BID [facility] Sodium Chloride (Ns Flush) 2 ml IV.FLUSH PRN PRN PRN Reason: FLUSH AFTER USING IV ACCESS Witch Guera/Glycerin (Tucks Pads) 1 applicatio RECTAL QID PRN PRN Reason: HEMORRHOIDS Last Admin: 09/14/17 06:41 Dose: 1 applicatio Zolpidem Tartrate (Ambien) 5 mg PO HS PRN PRN Reason: SLEEP Assessment and Plan - Plan 32-year-old status post vacuum-assisted vaginal delivery at 39 weeks and 1 day. 1. day #1: Doing well, continue routine care, some difficulty breast-feeding, to see today. Anticipate discharge home tomorrow. Discussed discharge precautions, expectations and follow-up. -Male , will do circumcision tomorrow as having some respiratory issues this morning. 2. Depression: Discussed precautions, continue her home medication 3. GDM A2: DC metformin, will need 2 hour glucose test between 4 and 12 weeks . 4. Thrombocytopenia: Likely gestational, normal platelet count with her new OB labs.
[2017-09-14 08:18] VITALS: RESP 18
[2017-09-14] MEDS: Ferrous Sulfate 325 MG Tablet PO SCH (10:22)
[2017-09-14] MEDS: Senna/Docusate Sodium 8.6/50 MG Tablet PO SCH ×2 (10:22→21:05)
[2017-09-14 20:57] VITALS: TEMP 98.1
[2017-09-15] MEDS: Ibuprofen 400 MG Tablet PO PRN ×2 (05:11→14:04)
[2017-09-15] MEDS: Ferrous Sulfate 325 MG Tablet PO SCH (08:08)
[2017-09-15] MEDS: Senna/Docusate Sodium 8.6/50 MG Tablet PO SCH (08:09)
--- NOTE | 2017-09-15 08:12 | P.PNOB ---
Subjective Post day: 2 Objective Vital Signs/I&O: Vital Signs 09/14/17 17:24 09/14/17 20:00 Temperature 98.1 F Pulse Rate 80 69 Respiratory Rate 18 Blood Pressure 121/76 120/79 Result Diagrams: 09/12/17 20:21 Objective Remarks: GENERAL: Well-nourished, well-developed patient. CARDIOVASCULAR: Regular rate and rhythm without murmurs, gallops, or rubs. RESPIRATORY: Breath sounds equal bilaterally. No accessory muscle use. ABDOMEN/GI: Abdomen soft, non-tender. Fundus: Firm, non-tender at umbilicus. GENITOURINARY: Light to moderate bleeding. EXTREMITIES: No cyanosis bilateral 1-2+ pitting edema, tender diffusely, no erythema, non-tender, without signs of DVT. Medications and IVs: Active Medications Acetaminophen (Tylenol) 650 mg PO Q4H PRN PRN Reason: PAIN SCALE 1 TO 2 Last Admin: 09/14/17 21:05 Dose: 650 mg Al Hydroxide/Mg Hydroxide (Milk Of Magnesia Liq) 30 ml PO Q12H PRN PRN Reason: Mild Constipation Benzocaine (Americaine 20% Top [place]) 1 spray TOPICAL Q4H PRN PRN Reason: For Perineum Discomfort Last Admin: 09/14/17 06:41 Dose: 1 spray Bisacodyl (Dulcolax Supp) 10 mg RECTAL DAILY PRN PRN Reason: SEVERE CONSITIPATION Ferrous Sulfate (Ferosul) 325 mg PO DAILY [facility] Last Admin: 09/15/17 08:08 Dose: 325 mg Lactulose (Lactulose Liq) 30 ml PO DAILY PRN PRN Reason: SEVERE CONSITIPATION Naloxone HCl (Narcan Inj) 0.1 mg IV.PUSH Q2M PRN PRN Reason: for opiate reversal Ondansetron HCl (Zofran Odt) 4 mg PO Q6H PRN PRN Reason: NAUSEA OR VOMITING Oxycodone/Acetaminophen (Percocet 5/325 Mg) 1 tab PO Q4H PRN PRN Reason: PAIN SCALE 3 TO 5 Oxycodone/Acetaminophen (Percocet 5/325 Mg) 2 tab PO Q4H PRN PRN Reason: PAIN SCALE 6 TO 10 Last Admin: 09/13/17 23:07 Dose: 2 tab Senna/Docusate Sodium ([place]-Colace) 1 tab PO BID [facility] Last Admin: 09/15/17 08:09 Dose: 1 tab Sennosides (Senokot) 17.2 mg PO Q12H PRN PRN Reason: Moderate Constipation Sodium Chloride (Ns Flush) 2 ml IV.FLUSH BID [facility] Last Admin: 09/14/17 10:22 Dose: Not Given Sodium Chloride (Ns Flush) 2 ml IV.FLUSH PRN PRN PRN Reason: FLUSH AFTER USING IV ACCESS Witch Guera/Glycerin (Tucks Pads) 1 applicatio RECTAL QID PRN PRN Reason: HEMORRHOIDS Last Admin: 09/14/17 06:41 Dose: 1 applicatio Zolpidem Tartrate (Ambien) 5 mg PO HS PRN PRN Reason: SLEEP Assessment and Plan - Plan 32-year-old status post vacuum-assisted vaginal delivery at 39 weeks and 1 day. 1. day #2: Doing well, discharge home today, may be for stay close room as still in NICU but improving and likely to come down to the floor today. -Male , will do circumcision prior to discharge, patient in NICU at this time. 2. Depression: Discussed precautions, continue her home medication 3. GDM A2: DC metformin, will need 2 hour glucose test between 4 and 12 weeks . 4. Thrombocytopenia: Likely gestational, normal platelet count with her new OB labs. 5. Lower extremity swelling: Likely due to fluid shifts of , provided reassurance, recommended to call if having worsening swelling, pain, asymmetry to rule out DVT.
[2017-09-15 08:18] VITALS: BP 111/72; PULSE 67
== END 2017-09-15 14:12 | disposition home or self-care (01) ==
LOC: H2E 18:34 → H1EA 09-14 01:38
PROVIDERS: ADMIT Obstetrics & Gynecology; ATTEND Obstetrics & Gynecology
DX: Z37.0 Single live birth; O99.12 Other diseases of the blood and blood-forming organs and certain disorders involving the immune mechanism complicating childbirth; O99.344 Other mental disorders complicating childbirth; O24.429 Gestational diabetes mellitus in childbirth, unspecified control; Z3A.39 39 weeks gestation of pregnancy; O75.81 Maternal exhaustion complicating labor and delivery